=== PATIENT | male | born 1995 | race Caucasian/White ===

== ENCOUNTER 2016-12-13 23:30 | Emergency (ER) | payer OTHER ==
--- NOTE | ~2016-12-13 | CT2 ---
[facility] A Service of [facility] & [facility] RADIOLOGY TEXT RESULTS PATIENT: JARED ALVARADO LOCATION: [facility] : [birth year] UNIT #: [id number] AGE: [address]: Cesario Kaur MD SEX: M ORDER DR: [id number] [facility] [address] [place], [place] [address] [id number] MR#: [id number] Acc #: [id number] NAME: JARED ALVARADO : 1995 SEX: M STUDY DATE/TIME: 12/14/2016 1:33 UNIT: [facility] ROOM: STUDY DESCRIPTION: CT Abd and Pelv W Cont Attending Physician: Cesario Kaur M.D. Ordering Physician: Cesario Kaur M.D. Primary Care Physician: Dusty Guerin M.D. MEDICAL IMAGING REPORT This report is preliminary unless electronic signature is present EXAM CT abdomen and pelvis with contrast, 12/14/2016 HISTORY 20-year-old male in the ED complaining of sudden onset mid abdomen pain and right upper quadrant pain beginning about 6 hours prior to arrival. TECHNIQUE CT examination of the abdomen and pelvis was performed with IV contrast. GI contrast material was not ordered, limiting evaluation of the GI tract. This CT exam was performed with one or more of the following radiation dose reduction techniques: automatic control, adjustment of mA and/or kV according to patient size, and iterative reconstruction. FINDINGS ABDOMEN FINDINGS: Multiple gallstones are present with a nondistended, diffusely thick-walled gallbladder. No intrahepatic or extrahepatic bile duct dilatation. The body and tail of the pancreas appears somewhat enlarged. Clinical and laboratory correlation is recommended to exclude mild acute pancreatitis. There is no pancreatic duct dilatation. Liver and spleen are negative. Both kidneys are negative with no evidence of urinary obstruction. Small bowel and colon are normal in caliber and appearance. The appendix is not clearly seen, but there is no indirect CT evidence of acute appendicitis. PELVIS FINDINGS: Bladder and rectum are negative. No inguinal hernia or abdominal wall hernia. Limited lung base images show no active disease in the lower chest. IMPRESSION 1. Cholelithiasis. Stone material is present within a nondistended, diffusely thick-walled or edematous gallbladder. No bile duct or STS. [facility] A Service of [facility] & [facility] RADIOLOGY TEXT RESULTS PATIENT: JARED ALVARADO LOCATION: [facility] : 95 UNIT #: [id number] AGE: [address]: Cesario Kaur MD SEX: M ORDER DR: pancreatic duct dilatation. 2. The body and tail of the pancreas is somewhat generous in size. Correlate for clinical or laboratory evidence of mild acute pancreatitis. 3. The remainder of the examination is negative. Dictated by... Jc Billings M.D. THIS IS AN ELECTRONICALLY VERIFIED REPORT Jc Billings M.D. at 12/14/2016 5:53 AM ANA/inez TD: 12/14/2016 03:05 JOB #: [id number] MEDICAL IMAGING REPORT Page 1 of 1 COPY
[2016-12-13 23:20] LABS: BASOPHIL% 0.3 % (0-2.5); EOSINOPHIL% 0.3 % (0.0-7.0); HEMATOCRIT 43.6 % (38.0-50.0); HEMOGLOBIN 14.6 gm/dL (13.0-16.0); LYMPHOCYTE# 1.9 X10e3 (1.0-3.5); LYMPHOCYTE% 18.2 % (17.0-45.0); MEAN CELL VOLUME 86.1 FL (83-96); MEAN CORPUSCULAR HEMOGLOBIN 28.7 PG (28-34); MEAN CORPUSCULAR HGB CONC 33.4 g/dL (30-36); MEAN PLATELET VOLUME 8.6 FL (6.5-11.5); MONOCYTE# 0.9 X10e3 (0-1.0); MONOCYTE% 8.3 % (3.0-12.0); NEUTROPHIL# 7.7 X10e3 (1.5-7.1); NEUTROPHIL% 72.9 % (40-75); PLATELET COUNT 194 X10e3 (140-420); RED BLOOD COUNT 5.06 X10e (3.90-5.60); RED CELL DISTRIBUTION WIDTH 13.4 % (11.0-15.5); WHITE BLOOD COUNT 10.5 X10e3 (4.0-10.5)
[2016-12-13 23:26] LABS: DIFF IND NO
[2016-12-13 23:42] LABS: ALBUMIN SERUM 4.5 g/dL (3.5-5.0); BILIRUBIN, DIRECT 0.3 mg/dL (0.0-0.2); BILIRUBIN,INDIRECT 0.7 mg/dL (0.0-0.9); CALCIUM SERUM 9.5 mg/dL (8.4-10.2); GLOM FILT RATE Estimated 107.9 mL/min (>60); POTASSIUM 3.6 mmol/L (3.5-5.1); PROTEIN TOTAL SERUM 7.2 g/dL (6.0-8.3)
[2017-01-02] MEDS ORDERED: EFFEXOR PO (14:54)
[2017-01-02] MEDS ORDERED: PANTOPRAZOLE SO40 MG PO (14:54)
[2017-01-02] MEDS ORDERED: WAL-PHED10 MG PO (14:57)
== END 2016-12-14 02:45 | disposition home or self-care (01) ==
LOC: CED 23:30
PROVIDERS: Emergency Medicine
DX: R10.84 Generalized abdominal pain (principal); F32.9 Major depressive disorder, single episode, unspecified
CPT/HCPCS: 36415; 74177; 80048; 80076; 82150; 83690; 85025; 96361; 96374; 96375; 99284; J2270; J2405; Q9967

== ENCOUNTER → 2017-01-02 | Day surgery (SDC) | payer OTHER ==
[~2017-01-02] MED LIST: EFFEXOR PO; PANTOPRAZOLE SO40 MG PO; WAL-PHED10 MG PO
--- NOTE | ~2017-01-02 | OR ---
Unit #: [id number] #: [id number] Patient: JARED ALVARADO [id number] [address] [place], [place] [address] [id number] O MR#: [id number] NAME: JARED ALVARADO ROOM: Date of Procedure: 01/02/2017 Admission Date: 01/02/2017 Surgeon: Bulmaro Perez Jr., M.D. : 1995 Attending Physician: Bulmaro Perez Jr., M.D. Primary Care Physician: Primary Care Physician No OPERATIVE REPORT INDICATIONS FOR PROCEDURE The patient is a 21-year-old white male, recently presented to the office complaining of intermittent biliary colic like symptoms and documented gallstones. He is brought in this time at his request for cholecystectomy. He understands the procedure including the risks, including that of common duct injury, biliary leak, bleeding, and intra-abdominal organ injury, and consents. PREOPERATIVE DIAGNOSES Chronic cholecystitis and cholelithiasis. POSTOPERATIVE DIAGNOSES Chronic cholecystitis and cholelithiasis, noting a chronic inflamed gallbladder. ANESTHESIA General with endotracheal intubation. 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 PROCEDURE PERFORMED Laparoscopic cholecystectomy. DESCRIPTION OF PROCEDURE The patient was positioned in supine position. After being anesthetized and intubated, he was prepped and draped in routine fashion for laparoscopic cholecystectomy. A small supraumbilical incision made approximately a 1 cm in length. This was carried down to the fascia. The fascia was lifted with a towel clip along with the umbilicus and a Veress needle introduced into the abdomen. The abdomen was then inflated with CO2 gas. A 5-mm port was introduced into the abdomen followed by the camera. There was no evidence of any injury related to introduction of the port of the Veress needle. Brief intraabdominal exploration was carried out. The patient was noted to have evidence of a chronic inflamed gallbladder, but no other abnormalities. The appendix appeared normal. Two 5-mm ports were placed laterally and an 11-mm port just to the right of the upper midline. The gallbladder was lifted. Dissection was carried out in the triangle of Calot, cystic duct which was only approximately 1 mm in diameter, was isolated, hemoclipped x4 approximately a 1 cm from its junction with the common duct and the cystic duct was then divided. The cystic artery was identified, hemoclipped x3, and divided. The Unit #: [id number] #: [id number] Patient: JARED ALVARADO gallbladder was removed from its bed with the hook cautery using a current of 20 and after it was released, it was removed along with the grasping clamp in the port through the right upper midline incision. The port was replaced. Subhepatic space checked. There was no evidence of any bleeding from the gallbladder bed. The clips on cystic duct and cystic artery were intact with no evidence of any leak or bleeding. The fascia in the larger port site was then closed with a neoClose technique. The ports were removed. There was no evidence of any bleeding from the port sites. The CO2 was expressed from the abdomen prior to removal of the ports. The port sites were injected with 0.5% Marcaine with epinephrine. They were then irrigated and after hemostasis achieved with Bovie cautery, skin edges were approximated with stainless-steel skin clips and skin stapling device. Sterile dressings were applied externally. Estimated blood loss less than 20 mL. The patient received less than 1000 mL crystalloid solution during the procedure. Sponges and instrument counts were correct x3. No drains used. No complications. The patient was taken to the recovery room with stable vital signs in satisfactory condition. Dictated by... Bulmaro Perez Jr., M.D. JMB/viviane TD: 01/03/2017 01:07 JOB #: [id number] OPERATIVE REPORT Page 1 of 1 X Bulmaro Perez MD X PROCEDURE OPERATIVE NOTE
[2017-01-02 13:28] LABS: ALBUMIN SERUM 4.6 g/dL (3.5-5.0); BILIRUBIN,TOTAL 0.7 mg/dL (0.2-2.0); CALCIUM SERUM 9.2 mg/dL (8.4-10.2); GLOM FILT RATE Estimated 107.1 mL/min (>60); POTASSIUM 3.8 mmol/L (3.5-5.1); PROTEIN TOTAL SERUM 7.2 g/dL (6.0-8.3)
== END | disposition home or self-care (01) ==
LOC: CSUR 12:06
PROVIDERS: Surgery
DX: K80.10 Calculus of gallbladder with chronic cholecystitis without obstruction (principal); F41.8 Other specified anxiety disorders
CPT/HCPCS: 80053; 88304; J0690; J1100; J1885; J2250; J2270; J2710; J2765; J3010